=== PATIENT | male | born 1950 | race Caucasian/White ===

== ENCOUNTER 2017-04-03 12:11 | Emergency (ER) | payer MEDICARE, BC ==
[~2017-04-03] VITALS: Ht 188 cm; Wt 105.0 kg
[~2017-04-03 12:11] MED LIST: ASPI81TA82 PO; AUGM875T PO; CARV12.52 PO; GLUCTAB PO; LOSA25TA31 PO; SIMV20 PO; TAB-TAB PO
[2017-04-03 12:13] VITALS: BP 113/79; PULSE 87; RESP 16; TEMP 98.4; O2SAT 97
[2017-04-03] MEDS ORDERED: ZOCO20TA PO (13:33)
[2017-04-03] MEDS ORDERED: DIATOMACEOUS EARTH (13:33)
[2017-04-03] MEDS ORDERED: ARGI500P PO (13:33)
[2017-04-03] MEDS ORDERED: FISH1000 (13:33)
[2017-04-03] MEDS ORDERED: CINN500C13 (13:33)
[2017-04-03] MEDS ORDERED: LOSA25TA PO (13:35)
[2017-04-03] MEDS ORDERED: METF500T PO (13:35)
[2017-04-03] MEDS ORDERED: ASPI81CH CHEW (13:35)
[2017-04-03] MEDS ORDERED: CARV12.52 PO (13:35)
[2017-04-03] MEDS ORDERED: SODIUM CHLORIDE 0.9% FLUSH 10 ML FLUSH IV FLUSH PRN (13:45)
[2017-04-03] MEDS ORDERED: FAMOTIDINE 20 MG/2 ML VIAL IV PUSH ONE (13:45)
--- NOTE | 2017-04-03 14:23 | PD ---
HPI Chief Complaint: Abdominal Pain Time Seen by Provider: 13:30 Travel History International Travel<30 days: No Contact w/Intl Traveler<30days: No Traveled to known affect area: No History of Present Illness HPI Patient is a 66-year-old male presenting to emergency department evaluation of epigastric discomfort. Patient states it's been intermittent since March 10, he states he feels bloated at times. This has happened 3 times since March 10, it resolved on its own and doesn't recur in the same day. Today it has occurred the better part of the morning again epigastric in nature, accompanied by nausea. Patient does not have any radiation of the pain. He states it concerned him so he went to the [facility] to make an appointment with his construction carpenter, he was unable to be seen today, he has an appointment on Sunday. He states that the pain is a 7 out of 10. He states while he is in the parking lot at the [facility], he states he stood there for a few minutes because if he was going to he was going to there. He went home and drank vinegar which did not relieve his symptoms. He denies any chest pain, fever, chills, vomiting, changes in bowel habits. His last bowel movement was this morning. Patient's past medical history significant for type 2 diabetes, hyperlipidemia, hypertension. PFSH Past Medical History Hx Anticoagulant Therapy: No High Cholesterol: Yes Diabetes: Yes Patient Takes Glucophage: Yes Diminished Hearing: No Hypertension: Yes Past Surgical History Tonsillectomy: Yes Social History Alcohol Use: Yes (OCCASIONALLY) Tobacco Use: No Substance Use: No Allergies-Medications (Allergen,Severity, Reaction): Coded Allergies: No Known Allergies (Unverified , 04/03/17) Reported Meds & Prescriptions Reported Meds & Active Scripts Active Reported Metformin (Metformin HCl) 500 Mg Tab 500 Mg PO BIDPC With meals Losartan (Losartan Potassium) 25 Mg Tab 25 Mg PO DAILY Carvedilol 12.5 Mg Tab 12.5 Mg PO BID Aspirin 81 Mg Chew 81 Mg CHEW DAILY [diatomaceous earth] DAILY Fish Oil ([place]-3 Fatty Acids) 1,000 Mg Cap DAILY Zocor (Simvastatin) 20 Mg Tab 20 Mg PO DAILY Sm Cinnamon (Cinnamon) 500 Mg Cap 1,000 DAILY Arginine 500 Mg Steven 500 Mg PO DAILY Review of Systems Except as stated in HPI: all other systems reviewed are Neg Eyes: No: Blurred Vision HENT: No: Headaches Cardiovascular: No: Chest Pain or Discomfort Respiratory: No: Shortness of Breath Gastrointestinal: Positive: Nausea, Abdominal Pain Neurologic: No: Weakness, Dizziness, Syncope Physical Exam Narrative GENERAL: Well-developed, well-nourished, alert elderly gentleman. Resting comfortably in no acute distress. SKIN: Warm and dry. HEAD: Atraumatic. Normocephalic. EYES: Pupils equal and round. No scleral icterus. No injection or drainage. ENT: No nasal bleeding or discharge. Mucous membranes pink and moist. NECK: Trachea midline. No JVD. CARDIOVASCULAR: Regular rate and rhythm. RESPIRATORY: No accessory muscle use. Clear to auscultation. Breath sounds equal bilaterally. GASTROINTESTINAL: Abdomen soft, mildly tender in epigastric region, nondistended. Hepatic and splenic margins not palpable. Positive bowel sounds, no rebound, no guarding. MUSCULOSKELETAL: Extremities without clubbing, cyanosis, or edema. No obvious deformities. NEUROLOGICAL: Awake and alert. No obvious cranial nerve deficits. Motor grossly within normal limits. Five out of 5 muscle strength in the arms and legs. Normal speech. PSYCHIATRIC: Appropriate mood and affect; insight and judgment normal. Data Data Last Documented VS Vital Signs Date Time Temp Pulse Resp B/P Pulse Ox O2 Delivery O2 Flow Rate FiO2 04/03/17 12:13 98.4 87 16 113/79 97 Orders Complete Blood Count With Diff (04/03/17 13:40) Comprehensive Metabolic Panel (04/03/17 13:40) Lipase (04/03/17 13:40) Prothrombin Time / Inr (Pt) (04/03/17 13:40) Act Partial Throm Time (Ptt) (04/03/17 13:40) Ct Abd/Pel W Iv Contrast(Rout) (04/03/17 13:40) Iv Access Insert/Monitor (04/03/17 13:40) Ecg Monitoring (04/03/17 13:40) Oximetry (04/03/17 13:40) NPO (04/03/17 13:40) Sodium Chloride 0.9% Flush (Ns Flush) (04/03/17 13:45) Electrocardiogram (04/03/17 13:40) Famotidine Inj (Pepcid Inj) (04/03/17 13:45) Ckmb (Isoenzyme) Profile (04/03/17 13:40) Troponin I (04/03/17 13:40) Iohexol 350 Inj (Omnipaque 350 Inj) (04/03/17 15:25) Chest, Single Ap (04/03/17 ) Labs Laboratory Tests Test 04/03/17 14:00 White Blood Count 7.6 TH/MM3 Red Blood Count 4.94 MIL/MM3 Hemoglobin 12.4 GM/DL Hematocrit 38.5 % Mean Corpuscular Volume 78.0 FL Mean Corpuscular Hemoglobin 25.1 PG Mean Corpuscular Hemoglobin 32.2 % Concent Red Cell Distribution Width 16.6 % Platelet Count 225 TH/MM3 Mean Platelet Volume 8.3 FL Neutrophils (%) (Auto) 51.3 % Lymphocytes (%) (Auto) 42.0 % Monocytes (%) (Auto) 5.7 % Eosinophils (%) (Auto) 0.5 % Basophils (%) (Auto) 0.5 % Neutrophils # (Auto) 3.9 TH/MM3 Lymphocytes # (Auto) 3.2 TH/MM3 Monocytes # (Auto) 0.4 TH/MM3 Eosinophils # (Auto) 0.0 TH/MM3 Basophils # (Auto) 0.0 TH/MM3 CBC Comment AUTO DIFF Differential Total Cells 100 Counted Neutrophils % (Manual) 49 % Band Neutrophils % 2 % Lymphocytes % 42 % Monocytes % 3 % Eosinophils % 3 % Neutrophils # (Manual) 4.0 TH/MM3 Promyelocytes 1 % Differential Comment FINAL DIFF MANUAL Platelet Estimate NORMAL Platelet Morphology Comment NORMAL Ovalocytes 1+ Prothrombin Time 11.1 SEC Prothromb Time International 1.0 RATIO Ratio Activated Partial 29.1 SEC Thromboplast Time Sodium Level 141 MEQ/L Potassium Level 4.6 MEQ/L Chloride Level 108 MEQ/L Carbon Dioxide Level 24.8 MEQ/L Anion Gap 8 MEQ/L Blood Urea Nitrogen 22 MG/DL Creatinine 1.04 MG/DL Estimat Glomerular Filtration 71 ML/MIN Rate Random Glucose 97 MG/DL Calcium Level 9.3 MG/DL Total Bilirubin 0.5 MG/DL Aspartate Amino Transf 63 U/L (AST/SGOT) Alanine Aminotransferase 37 U/L (ALT/SGPT) Alkaline Phosphatase 140 U/L Total Creatine Kinase 42 U/L Troponin I LESS THAN 0.02 NG/ML Total Protein 7.7 GM/DL Albumin 3.4 GM/DL Lipase 148 U/L MDM Medical Decision Making Medical Screen Exam Complete: Yes Emergency Medical Condition: Yes Interpretation(s) Laboratory Tests Test 04/03/17 14:00 White Blood Count 7.6 TH/MM3 Red Blood Count 4.94 MIL/MM3 Hemoglobin 12.4 GM/DL Hematocrit 38.5 % Mean Corpuscular Volume 78.0 FL Mean Corpuscular Hemoglobin 25.1 PG Mean Corpuscular Hemoglobin 32.2 % Concent Red Cell Distribution Width 16.6 % Platelet Count 225 TH/MM3 Mean Platelet Volume 8.3 FL Neutrophils (%) (Auto) 51.3 % Lymphocytes (%) (Auto) 42.0 % Monocytes (%) (Auto) 5.7 % Eosinophils (%) (Auto) 0.5 % Basophils (%) (Auto) 0.5 % Neutrophils # (Auto) 3.9 TH/MM3 Lymphocytes # (Auto) 3.2 TH/MM3 Monocytes # (Auto) 0.4 TH/MM3 Eosinophils # (Auto) 0.0 TH/MM3 Basophils # (Auto) 0.0 TH/MM3 CBC Comment AUTO DIFF Differential Total Cells 100 Counted Neutrophils % (Manual) 49 % Band Neutrophils % 2 % Lymphocytes % 42 % Monocytes % 3 % Eosinophils % 3 % Neutrophils # (Manual) 4.0 TH/MM3 Promyelocytes 1 % Differential Comment FINAL DIFF MANUAL Platelet Estimate NORMAL Platelet Morphology Comment NORMAL Ovalocytes 1+ Prothrombin Time 11.1 SEC Prothromb Time International 1.0 RATIO Ratio Activated Partial 29.1 SEC Thromboplast Time Sodium Level 141 MEQ/L Potassium Level 4.6 MEQ/L Chloride Level 108 MEQ/L Carbon Dioxide Level 24.8 MEQ/L Anion Gap 8 MEQ/L Blood Urea Nitrogen 22 MG/DL Creatinine 1.04 MG/DL Estimat Glomerular Filtration 71 ML/MIN Rate Random Glucose 97 MG/DL Calcium Level 9.3 MG/DL Total Bilirubin 0.5 MG/DL Aspartate Amino Transf 63 U/L (AST/SGOT) Alanine Aminotransferase 37 U/L (ALT/SGPT) Alkaline Phosphatase 140 U/L Total Creatine Kinase 42 U/L Troponin I LESS THAN 0.02 NG/ML Total Protein 7.7 GM/DL Albumin 3.4 GM/DL Lipase 148 U/L Vital Signs Date Time Temp Pulse Resp B/P Pulse Ox O2 Delivery O2 Flow Rate FiO2 04/03/17 12:13 98.4 87 16 113/79 97 Differential Diagnosis Stable angina versus acute coronary syndrome versus cholecystitis versus gastritis versus GERD versus less likely AAA Narrative Course Patient is a 66-year-old male presenting for evaluation of epigastric pain that is intermittent in nature since the beginning of March however today the symptoms exacerbated and concerned him prompting a presentation to the emergency department. Patient does have multiple risk factors for heart disease , he had a negative stress test several years ago. He is currently followed by Dr. Moya, cardiology. Patient's vital signs are stable, he appears well. Initial EKG shows sinus rhythm with a rate of 71. Chest x-ray shows linear atelectatic changes of the left hemidiaphragm, lungs are otherwise clear, heart size normal. CT scan abdomen and pelvis read by radiologist shows biliary ductal dilatation of indeterminate etiology, correlation with alkaline phosphatase and bilirubin levels suggested to rule out biliary obstruction. Uncomplicated colonic diverticulosis, splenomegaly, left renal cyst, 2.5 cm left lobe hepatic cyst, 7 mm low density lesion within the right lobe of the liver, low density lesion within the right iliopsoas musculature measuring 4.7 x 2.4 cm consistent with possible hematoma, degenerative changes of the lumbar spine. Judicial Registrar has been paged. CBC with no acute abnormalities identified Cardiac enzymes negative 1 set, cardiac etiology less likely in the setting of the abnormal abdominal CT. Lipase is normal, AST 63, alkaline phosphatase 140 Coags are unremarkable Discussed with Dr. Perez, she recommended contacting GI to discuss results. Discussed results of labs and imaging with Dr. Rhodes from [facility]. Pt may likely need EUS as outpatient. Discussed follow up with patient as well as stressing strict return precautions should his symptoms change or worsen. He was encouraged to maintain a bland low residue diet, avoiding spicy, fried, fatty foods and caffeine. He verbalized understanding of instructions. Pt is stable for discharge. Diagnosis Primary Impression: Epigastric discomfort Additional Impression: Abnormal CT of the abdomen Referrals: Ronak Breaux MD 3 days SCHEDULED ON SUNDAY AT 12:30 Patient Instructions: Abdominal Pain (ED), General Instructions Additional Instructions: Follow-up with Dr. Breaux on Sunday as scheduled Return to emergency department immediately for any new or worsening symptoms Maintain a bland, easy to digest diet Avoid acidic, spicy, or caffeinated foods Med/Other Pt SpecificInfo: No Change to Meds Disposition: 01 DISCHARGE HOME Condition: Stable Becca Cisse Apr 03, 2017 14:23
[2017-04-03 14:35] LABS: AUTOMATED NEUTROPHIL # 3.9 TH/MM3 (1.8-7.7); BASOPHIL % 0.5 % (0.0-2.0); EOSINOPHIL % 0.5 % (0.0-4.0); HEMATOCRIT 38.5 % (39.0-51.0); LYMPHOCYTE # 3.2 TH/MM3 (1.0-4.8); MEAN CORPUSCULAR HEMOGLOBIN 25.1 PG (27.0-34.0); MEAN CORPUSCULAR HGB CONC 32.2 % (32.0-36.0); MONO % 5.7 % (0.0-8.0); NEUT % 51.3 % (16.0-70.0); PLATELET COUNT 225 TH/MM3 (150-450); RED BLOOD COUNT 4.94 MIL/MM3 (4.50-5.90); RED CELL DISTRIBUTION WIDTH 16.6 % (11.6-17.2); WHITE BLOOD COUNT 7.6 TH/MM3 (4.0-11.0)
[2017-04-03 14:40] LABS: HEMO FLAGS AUTO DIFF
[2017-04-03 14:45] LABS: APTT (PATIENT) 29.1 SEC (24.3-30.1); PROTHROMBIN TIME - PATIENT 11.1 SEC (9.8-11.6)
[2017-04-03 14:56] LABS: ANION GAP 8 MEQ/L (5-15); AST (GOT) 63 U/L (15-37); BICARBONATE 24.8 MEQ/L (21.0-32.0); BLOOD UREA NITROGEN 22 MG/DL (7-18); CHLORIDE 108 MEQ/L (98-107); GLOMERULAR FILTRATION RATE 71 ML/MIN (>89); POTASSIUM 4.6 MEQ/L (3.5-5.1); SODIUM (NA) 141 MEQ/L (136-145)
[2017-04-03 15:01] LABS: ALKALINE PHOSPHATASE 140 U/L (45-117); ALT (GPT) 37 U/L (12-78); TOTAL BILIRUBIN ADULT 0.5 MG/DL (0.2-1.0)
[2017-04-03 15:09] LABS: CREATINE KINASE 42 U/L (39-308)
[2017-04-03 15:21] LABS: BANDS 2 % (0-6); EOSINOPHILS 3 % (0-4); POLYS (SEG NEUTROPHILS) 49 % (16-70); PROMYELOCYTES 1 % (0-0); WBC DIFF SAMPLE 100
[2017-04-03 15:23] LABS: OVALOCYTES 1+ (NORMAL); PLATELET ESTIMATE SMEAR NORMAL (NORMAL); PLATELET MORPHOLOGY NORMAL (NORMAL); SCAN/DIFF FINAL DIFF MANUAL
[2017-04-03] MEDS ORDERED: IOHEXOL 350 MG/ML 10 ML VIAL (for RAD DIAG) IV ONE (15:25)
--- NOTE | 2017-04-03 16:03 | RADRPT ---
EXAM DATE/TIME: 04/03/2017 15:52 [facility] COMPARISON: No previous studies available for comparison. INDICATIONS : Bilateral anterior, inferior rib pain. MEDICAL HISTORY : Hypertension. Diabetes SURGICAL HISTORY : None. ENCOUNTER: Initial ACUITY: 1 day PAIN SCORE: 2/10 LOCATION: Bilateral chest FINDINGS: A single view of the chest demonstrates the lungs to be symmetrically aerated with some linear atelec tatic changes identified above the left hemidiaphragm. No confluent infiltrate or effusion. Accountin g for degree of inspiration, heart size is normal. Osseous structures are intact. CONCLUSION: 1. Linear atelectatic changes of the left hemidiaphragm. 2. Lungs are otherwise clear. Heart size is normal. Mani Strickland MD on April 03, 2017 at 16:01 Board Certified Radiologist. This report was verified electronically.
--- NOTE | 2017-04-03 16:07 | RADRPT ---
EXAM DATE/TIME: 04/03/2017 15:20 [facility] COMPARISON: No previous studies available for comparison. INDICATIONS : Epigastric discomfort IV CONTRAST: 100 cc Omnipaque 350 (iohexol) IV ORAL CONTRAST: No oral contrast ingested. RADIATION DOSE: 16.12 CTDIvol (mGy) MEDICAL HISTORY : Hypertension. Diabetes SURGICAL HISTORY : None. ENCOUNTER: Initial ACUITY: 3 weeks PAIN SCALE: 3/10 LOCATION: Bilateral upper quadrant TECHNIQUE: Volumetric scanning of the abdomen and pelvis was performed. Using automated exposure control and ad justment of the mA and/or kV according to patient size, radiation dose was kept as low as reasonably achievable to obtain optimal diagnostic quality images. DICOM format image data is available electro nically for review and comparison. FINDINGS: There is evidence of mild intrahepatic and extrahepatic biliary ductal dilatation of indeterminate et iology. Correlation with alkaline phosphatase and bilirubin levels is suggested to confirm biliary o bstruction. No calcified calculus is noted in the expected region of the distal common bile duct. S ubtle ampullary mass cannot be ruled out on the basis of this examination. There is a low density le jeferson within the left lobe of the liver measuring 2.5 cm consistent with probable hepatic cysts. A sm aller 7 mm low density lesion is noted within the right lobe of the liver posteriorly and is too smal l for accurate density measurement. The gallbladder is distended but its wall is not thickened. The spleen is significantly enlarged. It measures at least 17.3 cm in size. The pancreas is unremarkab le. The adrenal glands are normal bilaterally. There are two small left renal cysts with the larger measuring 1.8 cm. There is no hydronephrosis, stone or solid renal mass. The abdominal aorta is ca lcified but is not aneurysmally dilated. The inferior vena cava is normal. There is no evidence of paraaortic, retroperitoneal or mesenteric lymphadenopathy. Uncomplicated colonic diverticulosis is n oted. There is no acute diverticulitis. The urinary bladder is nondistended and therefore its evalua tion is limited. The prostate gland is mildly prominent. The appendix is normal. Degenerative etienne es and scoliosis of the lumbar spine are noted. No pelvic lymphadenopathy is noted. There is a low density lesion within the right iliopsoas muscle measuring 4.7 x 2.4 cm which may represent a small h ematoma. The heart is enlarged. Coronary artery calcifications are noted. Scattered atelectasis and/or fibroti c scarring is noted within the lung bases. CONCLUSION: 1. Biliary ductal dilatation of indeterminate etiology. Correlation with alkaline phosphatase and miguel angel irubin levels is suggested to rule out biliary obstruction. 2. Uncomplicated colonic diverticulosis. 3. Splenomegaly. 4. Left renal cyst. 5. 2.5 cm left lobe hepatic cyst. 6. 7 mm low density lesion within the right lobe of the liver which is too small for accurate density measurement. 7. Cardiomegaly and coronary artery calcifications. 8. Degenerative changes and scoliosis of the lumbar spine. 9. Low density lesion within the right iliopsoas musculature measuring 4.7 x 2.4 cm consistent with p ossible hematoma. Pedro Luis Landeros MD on April 03, 2017 at 15:44 Board Certified Radiologist. This report was verified electronically.
--- NOTE | 2017-04-03 17:03 | EKG ---
Date Performed: 04/03/2017 Time Performed: 13:52:00 PTAGE: 66 years EKG: Sinus rhythm BORDERLINE LEFT AXIS DEVIATION BORDERLINE ECG NO PREVIOUS TRACING DOCTOR: Kassandra Bentley Interpretating Date/Time 04/03/2017 17:02:14
== END 2017-04-03 18:07 | disposition home or self-care (01) ==
LOC: NEPD 12:11
DX: R10.13 Epigastric pain (principal); R11.0 Nausea; K57.30 Diverticulosis of large intestine without perforation or abscess without bleeding; R16.1 Splenomegaly, not elsewhere classified; N28.1 Cyst of kidney, acquired; K76.89 Other specified diseases of liver; M51.36 Other intervertebral disc degeneration, lumbar region; M41.9 Scoliosis, unspecified; E11.9 Type 2 diabetes mellitus without complications
CPT/HCPCS: 71010; 74177; 80053; 82550; 83690; 84484; 85007; 85027; 85610; 85730; 93005; 96374; 99285; Q9967